=== PATIENT | female | born 1995 | race Caucasian/White ===

== ENCOUNTER 2020-08-07 18:07 | Emergency (ER) | payer BC, MEDICAID, OTHER ==
[2020-08-07] MEDS ORDERED: traMADol 50 MG Tab PO ONE (18:08)
[2020-08-07] MEDS ORDERED: Dexamethasone/Tobramycin 0.1-0.3% Ophth Susp 2.5 ML Bottle ONE (18:08)
--- NOTE | 2020-08-07 18:44 | EDM.PDOC ---
ED HPI GENERAL MEDICAL PROBLEM - General Chief Complaint: ENT Problem Stated Complaint: PAIN IN BOTH EARS Time Seen by Provider: 08/07/20 18:25 Source of Information: Reports: Patient History Limitations: Reports: No Limitations - History of Present Illness INITIAL COMMENTS - FREE TEXT/NARRATIVE: Cecilia comes into [facility] ED with bilateral earache, R>L. She was diagnosed with PRADEEP per PCP and dispensed Corticosporin otic gtts qid about2 days ago. Sxs have not improved. She is also taking NSAIDs for pain relief. - Related Data Allergies Allergy/AdvReac Type Severity Reaction Status Date / Time No Known Allergies Allergy Verified 11/29/13 19:09 Home Meds: Home Meds Magnesium Citrate 296 ml PO ONETIME #1 solution 11/29/13 [Rx] Past Medical History - Past Health History Medical/Surgical History: Denies Medical/Surgical History ED ROS ENT - Review of Systems Review Of Systems: Comprehensive ROS is negative, except as noted in HPI. ED EXAM, ENT - Physical Exam Exam: See Below Exam Limited By: No Limitations General Appearance: Alert, WD/WN, No Apparent Distress Eye Exam: Bilateral Eye: EOMI, Normal Inspection, PERRL Ears: Normal External Exam, Hearing Grossly Normal, Normal TMs, Other (mild erythema of R external canal, minor debris bilaterally, TMs appear normal.) Nose: Normal Inspection Mouth/Throat: Normal Inspection, Normal Lips, Normal Oropharynx Head: Normocephalic Neck: Normal Inspection, Supple, Non-Tender Respiratory/Chest: Lungs Clear Cardiovascular: Regular Rate, Rhythm, No Murmur Back: Normal Inspection Extremities: Normal Inspection Neurological: Alert, Oriented, CN II-XII Intact Psychiatric: Normal Affect, Normal Mood Skin: Warm, Dry, Intact, Normal Color, No Rash Lymphatic: No Adenopathy Course - Vital Signs Text/Narrative:: Following assessment, I dispensed Tobradex oph gtts tid as directed, and Nasacort NS for ETB. Departure - Departure Time of Disposition: 18:48 Disposition: Home, Self-Care 01 Condition: Fair Clinical Impression: Eustachian tube dysfunction Qualifiers: Laterality: bilateral Qualified Code(s): H69.83 - Other specified disorders of Eustachian tube, bilateral Otitis externa Qualifiers: Otitis externa type: unspecified type Chronicity: unspecified Laterality: right Qualified Code(s): H60.91 - Unspecified otitis externa, right ear - Discharge Information *PRESCRIPTION DRUG MONITORING PROGRAM REVIEWED*: Not Applicable *COPY OF PRESCRIPTION DRUG MONITORING REPORT IN PATIENT SHANIQUA: Not Applicable Referrals: Jerome Lang MD [Primary Care Provider] - Forms: ED Department Discharge - Problem List & Annotations (1) Eustachian tube dysfunction SNOMED Code(s): 90193259 Code(s): H69.80 - OTH DISRD OF EUSTACHIAN TUBE, UNSPECIFIED EAR Status: Acute Current Visit: Yes Annotation/Comment:: I suggested Nasonex NS qd, Politzer maneuver, chew gum, NSAIDs or Tylenol for comfort Qualifiers: Laterality: bilateral Qualified Code(s): H69.83 - Other specified disorders of Eustachian tube, bilateral (2) Otitis externa SNOMED Code(s): 3202206 Code(s): H60.90 - UNSPECIFIED OTITIS EXTERNA, UNSPECIFIED EAR Status: Acute Current Visit: Yes Annotation/Comment:: Stop Corticosporin otic, begin Tobradex oph gtts tid, NSAIDs for comfort, avoid water into external ears with bathing Qualifiers: Otitis externa type: unspecified type Chronicity: unspecified Laterality: right Qualified Code(s): H60.91 - Unspecified otitis externa, right ear - Problem List Review Problem List Initiated/Reviewed/Updated: Yes - Assessment/Plan Plan: Follow up with PCP if sxs persist.
[2020-08-07] MEDS ORDERED: Mometasone Furoate Nasal Spray 17 GM Canister NASBOTH SCH (18:49)
[2020-08-07 20:10] VITALS: BP 119/77; PULSE 72
== END 2020-08-07 19:36 | disposition home or self-care (01) ==
LOC: FB.ED 18:07
DX: H69.83 Other specified disorders of Eustachian tube, bilateral (principal); H60.91 Unspecified otitis externa, right ear
CPT/HCPCS: 99282; 99283; A9270-GY

== ENCOUNTER 2021-06-07 17:20 | Emergency (ER) | payer MEDICAID ==
[2021-06-07 17:36] VITALS: BP 131/82; PULSE 96
[2021-06-07] MEDS ORDERED: methylPREDNISolone Sodium Succinate 125 MG/2 ML SDV IM ONE (17:53)
[2021-06-07] MEDS ORDERED: Lidocaine 2% Viscous Solution 15 ML Cup PO ONE (17:54)
[2021-06-07] MEDS ORDERED: Ciprofloxacin 500 MG Tab PO ONE (17:56)
--- NOTE | 2021-06-07 18:00 | EDM.PDOC ---
ED HPI GENERAL MEDICAL PROBLEM - General Chief Complaint: ENT Problem Stated Complaint: EAR INFECTION Time Seen by Provider: 06/07/21 17:40 Source of Information: Reports: Patient History Limitations: Reports: No Limitations - History of Present Illness INITIAL COMMENTS - FREE TEXT/NARRATIVE: c/o b/l ear pain went to pool with daughter several days ago, had ear pain yesterday AM and went to clinic, given Cortisporin Otic Susp 3 gtts not able to sleep, still pain, no d/c, no fever has h/o OE denies allergies/hayfever/asthma altho does have narrow nasal passages with mode rate swell no rhinorrhea not work outside house, 2 children at home are not ill taking ibuprofen 4 tabs q2h altho advised not to take more than 12 tabs in 24 hours bilateral ear Pain Score (Numeric/FACES): 10 - Related Data Allergies Allergy/AdvReac Type Severity Reaction Status Date / Time No Known Allergies Allergy Verified 11/29/13 19:09 Home Meds: Home Meds Acetaminophen [Tylenol] 325 mg PO Q4H PRN 08/07/20 [History] Amoxicillin 500 mg PO TID 08/07/20 [History] Hydrocort/Neomycin/Polymyxin B [Cortisporin Otic Susp] 2 drop EARBOTH ASDIRECTED 08/07/20 [History] Ibuprofen 200 mg PO ASDIRECTED 08/07/20 [History] Ciprofloxacin [Ciprofloxacin HCl] 500 mg PO BID #10 tab 06/07/21 [Rx] predniSONE 20 mg PO DAILY #5 tab 06/07/21 [Rx] Past Medical History - Past Health History Medical/Surgical History: Denies Medical/Surgical History [employer] History: Reports: - Past Surgical History HEENT Surgical History: Reports: Myringotomy w Tube(s) Social & Family History - Family History Family Medical History: No Pertinent Family History - Tobacco Use Tobacco Use Status *Q: Current Every Day Tobacco User Years of Tobacco use: 6 Packs/Tins Daily: 0.5 - Caffeine Use Caffeine Use: Reports: Soda - Recreational Drug Use Recreational Drug Use: No ED ROS ENT - Review of Systems Review Of Systems: See Below Constitutional: Reports: No Symptoms HEENT: Reports: Ear Pain Respiratory: Reports: No Symptoms Endocrine: Reports: No Symptoms GI/Abdominal: Reports: No Symptoms : Reports: No Symptoms Musculoskeletal: Reports: No Symptoms Skin: Reports: No Symptoms Neurological: Reports: No Symptoms Psychiatric: Reports: No Symptoms Hematologic/Lymphatic: Reports: No Symptoms Immunologic: Reports: No Symptoms ED EXAM, ENT - Physical Exam Exam: See Below Exam Limited By: No Limitations General Appearance: Alert, WD/WN, Mild Distress Ears: Other (TMs wnl b/l, no debris in canals b/l, no red b/l, however there is 50% swell of R canal and 20% swell of L canal, 2+ tender on tug pinnas b/l) Nose: Other (thin nose with narrow anterior and middle chambers, 50% swell R and and 30% on less) Mouth/Throat: Other (slight hypergemia of uvula, otherwise neg) Neck: Normal Inspection, Supple, Non-Tender, Full Range of Motion. No: Lymphadenopathy (R), Lymphadenopathy (L) Course - Vital Signs Last Recorded V/S: Last Vital Signs Temp 35.9 C L 06/07/21 17:31 Pulse 96 06/07/21 17:31 Resp 18 06/07/21 17:31 BP 131/82 06/07/21 17:31 Pulse Ox 99 06/07/21 17:31 - Re-Assessments/Exams Free Text/Narrative Re-Assessment/Exam: 06/07/21 18:17 not clear if she may have underlying allergic rhinitis given nasal swell, has had dx of ETD in past which ordinarily should not affect otitis externa, yet may benefit from steroids, might even benefit from loratadine-D altho additional meds deferred at present beyond those given Departure - Departure Time of Disposition: 17:57 Disposition: Home, Self-Care 01 Condition: Good Clinical Impression: Otitis externa - Discharge Information *PRESCRIPTION DRUG MONITORING PROGRAM REVIEWED*: Not Applicable *COPY OF PRESCRIPTION DRUG MONITORING REPORT IN PATIENT SHANIQUA: Not Applicable Prescriptions: Ciprofloxacin [Ciprofloxacin HCl] 500 mg PO BID #10 tab predniSONE 20 mg PO DAILY #5 tab Instructions: Otitis Externa Additional Instructions: For infection, increase the antibiotic drops to 3 drops 4 times a day for 5 more days. For infection, take the antibiotic ciprofloxacin 500 mg 1 tab 2 times a day for 5 days. For pain and swelling and inflammation, take the steroid prednisone 20 mg 1 tab daily for 5 days beginning tomorrow. For pain, use the 2% viscous lidocaine 3 drops in the ear canal every hour as needed. For pain, take ibuprofen 200 mg 3 tabs and acetaminophen 500 mg 2 tabs 4 times a day for 2 days, longer if needed. In the future, when swimming, use ear plugs to keep water out of your ears. After swimming, put vinegar (which is 2% acetic acid) 3 drops in the ear canal every 6 hours for 4 doses, which will help prevent develop of infection. See your doctor in one week for further recommendations. Sepsis Event Note (ED) - Evaluation Sepsis Screening Result: No Definite Risk - Focused Exam Vital Signs: Vital Signs Temp Pulse Resp BP Pulse Ox 06/07/21 17:31 35.9 C L 96 18 131/82 99
[2021-06-07] MEDS ORDERED: Acetaminophen 500 MG Tab PO ONE (18:08)
== END 2021-06-07 18:20 | disposition home or self-care (01) ==
LOC: FB.ED 17:20
DX: H60.93 Unspecified otitis externa, bilateral (principal); Z72.0 Tobacco use
CPT/HCPCS: 96372; 99282; A9270-GY; J2930

== ENCOUNTER 2021-12-29 06:11 | Emergency (ER) | payer MEDICAID ==
[2021-12-29 06:30] VITALS: BP 149/95; PULSE 87
[2021-12-29] MEDS ORDERED: Acetaminophen/HYDROcodone 325-5 MG Tab PO STA (06:55)
== END 2021-12-29 07:00 | disposition home or self-care (01) ==
LOC: FB.ED 06:11
DX: H66.93 Otitis media, unspecified, bilateral (principal); Z72.0 Tobacco use
CPT/HCPCS: 99282; A9270

== ENCOUNTER 2022-07-22 22:53 | Emergency (ER) | payer MEDICAID ==
[2022-07-22] MEDS ORDERED: Penicillin V Potassium 250 MG Tab PO ONE (22:54)
[2022-07-22] MEDS ORDERED: Acetaminophen/HYDROcodone 325-5 MG Tab PO ONE (22:54)
[2022-07-22 23:14] VITALS: BP 111/74; PULSE 86
== END 2022-07-22 23:40 | disposition home or self-care (01) ==
LOC: FB.ED 22:53
DX: K04.7 Periapical abscess without sinus (principal); F17.210 Nicotine dependence, cigarettes, uncomplicated; Z79.899 Other long term (current) drug therapy
CPT/HCPCS: 99283; A9270-GY